=== PATIENT | male | born 1985 ===

== ENCOUNTER 2016-05-25 22:20 | Emergency (ER) | payer MEDICAID ==
[~2016-05-25] VITALS: Ht 177.8 cm; Wt 78.2 kg
[2016-05-25 22:25] VITALS: Ht 177.8 cm; Wt 78.2 kg
--- NOTE | 2016-05-25 23:40 | ERA ---
ER Documentation Chief Complaint Date/Time DATE: 05/25/16 TIME: 23:40 Chief Complaint shaking since 2 days HPI The patient is a 30-year-old male, presenting to the ER because of shakiness for the last 2 days because he ran out of his Xanax that he has been taking for more than 11 years yesterday. According to him, he takes Xanax 2 mg 3 times a day and somebody stole his medication. He is agitated why answering question. Has a remote history of seizure that he took Dilantin, however he stopped taking Dilantin for more than 3 months. He also used to take Depakote for unclear reason. When he was asked whether he is suicidal, he declined to answer the question and stated that I am feeling as if I am. going insane. He smokes, smokes marijuana, denies drinking Past medical history: Anxiety Past surgical history: Tonsillectomy ROS All systems reviewed and are negative except as per history of present illness. Allergies Allergies: Coded Allergies: No Known Allergy (Unverified , 05/25/16) Physical Exam Vitals Vital Signs Date Time Temp Pulse Resp B/P Pulse Ox O2 Delivery O2 Flow Rate FiO2 05/25/16 23:52 73 17 116/74 100 Room Air 05/25/16 22:25 98.3 104 20 153/112 98 Physical Exam Const: No acute distress. Head: Atraumatic. Eyes: Normal Conjunctiva. ENT: Normal External Ears, Nose and Mouth. Neck: Full range of motion. No meningismus. Resp: Clear to auscultation bilaterally. Cardio: Regular but tachycardic Abd: Soft, non distended, normal bowel sounds, non tender. Skin: No petechiae or rashes. Back: No midline or flank tenderness. Ext: No cyanosis, or edema. Neur: Awake and alert. No focal deficit Psych: Anxious, agitated Result Diagram: 05/25/16 0000 05/25/16 0000 Results 24 hrs Laboratory Tests Test 05/25/16 00:00 Acetaminophen Level < 10.0ug/ml Alanine Aminotransferase (ALT/SGPT) 184IU/L Albumin 4.3g/dl Albumin/Globulin Ratio 1.22 Alkaline Phosphatase 84IU/L Anion Gap 17 Aspartate Amino Transf (AST/SGOT) 105IU/L Basophils # 0.010^3/ul Basophils % 0.6% Blood Urea Nitrogen 14mg/dl Calcium Level 10.0mg/dl Carbon Dioxide Level 27mmol/L Chloride Level 100mmol/L Creatinine 0.95mg/dl Direct Bilirubin 0.00mg/dl Eosinophils # 0.110^3/ul Eosinophils % 1.3% Ethyl Alcohol Level < 10.0mg/dl Globulin 3.50g/dl Glucose Level 81mg/dl Hematocrit 45.2% Hemoglobin 14.9g/dl Indirect Bilirubin 0.6mg/dl Lymphocytes # 3.310^3/ul Lymphocytes % 48.5% Mean Corpuscular Hemoglobin 29.4pg Mean Corpuscular Hemoglobin Concent 33.0g/dl Mean Corpuscular Volume 89.2fl Mean Platelet Volume 10.7fl Monocytes # 0.810^3/ul Monocytes % 11.6% Neutrophils # 2.610^3/ul Neutrophils % 37.9% Nucleated Red Blood Cells # 0.010^3/ul Nucleated Red Blood Cells % 0.0/100WBC Platelet Count 83191^3/UL Potassium Level 4.0mmol/L Red Blood Count 5.0710^6/ul Red Cell Distribution Width 13.8% Salicylates Level < 1.0mg/dl Sodium Level 140mmol/L Total Bilirubin 0.6mg/dl Total Protein 7.8g/dl White Blood Count 6.910^3/ul Procedures/[place] [id number] Radiology Main Line: [phone] DIAGNOSTIC IMAGING REPORT Patient: CAROL RSOS : 1985 Age: 30 Sex: M [id number] [id number] DOS: 05/25/16 2351 Ordering MD: EFREM BAILEY MD Location: E/R Room/Bed: PROCEDURE: XR Chest. CLINICAL INDICATION: Altered level of consciousness. TECHNIQUE: Portable AP upright view of the chest was obtained. COMPARISON: None. FINDINGS: The cardiomediastinal silhouette is within normal limits. The lungs are clear. There is no evidence for pleural effusion, pneumothorax or pulmonary vascular congestion. The osseous structures are intact with no evidence for acute abnormality. RPTAT:HJJR IMPRESSION: No evidence for acute intrathoracic pathology. Blayne Hunt Physician Date Time Electronically viewed and signed by Blayne Hunt Physician on 05/26/2016 00:52 JR/ CC: EFREM BAILEY MD MEDICAL MAKING DECISION: The patient is a 30-year-old male, presenting with acute psychosis and possibly acute suicidal ideation and acute benzodiazepine withdrawal. The differential diagnoses considered include but are not limited to psychosis, drug-induced psychosis, benzodiazepine withdrawal, acute anxiety attack, acute panic attack, decompensated psychiatric illness Departure Diagnosis: Primary Impression: Psychosis Condition: Stable Comments He is awaiting for telepsychiatrist evaluation The patient's blood pressure was elevated (>120/80) but appears stable without evidence of hypertension emergency or urgency. The patient was counseled about the risks of hypertension and urged to pursue outpatient monitoring and therapy within a week with their primary care physician. EFREM BAILEY MD May 25, 2016 23:40
[2016-05-26 00:06] LABS: ADD SCAN DIFF NO
[2016-05-26 00:12] LABS: BASOPHILS % 0.6 % (0.0-2.0); EOSINOPHILS # 0.1 10^3/ul (0.0-0.5); EOSINOPHILS % 1.3 % (0.0-7.0); HEMATOCRIT 45.2 % (42.0-52.0); HEMOGLOBIN 14.9 g/dl (14.0-18.0); LYMPHOCYTES # 3.3 10^3/ul (0.8-2.9); LYMPHOCYTES % 48.5 % (15.0-51.0); MEAN CORPUSCULAR HEMOGLOBIN 29.4 pg (29.0-33.0); MEAN CORPUSCULAR VOLUME 89.2 fl (82.0-101.0); MEAN PLATELET VOLUME 10.7 fl (7.4-10.4); MONOCYTE # 0.8 10^3/ul (0.3-0.9); MONOCYTES % 11.6 % (0.0-11.0); NEUTROPHIL # 2.6 10^3/ul (1.6-7.5); NEUTROPHILS % 37.9 % (39.0-77.0); PLATELET COUNT 243 10^3/UL (140-415); RED BLOOD COUNT 5.07 10^6/ul (4.70-6.10); RED CELL DISTRIBUTION WIDTH 13.8 % (11.5-14.5); WHITE BLOOD COUNT 6.9 10^3/ul (4.8-10.8)
[2016-05-26 00:21] LABS: ALBUMIN 4.3 g/dl (3.3-4.9); CHLORIDE 100 mmol/L (97-110); SODIUM 140 mmol/L (135-144)
[2016-05-26 00:23] LABS: CREATININE 0.95 mg/dl (0.61-1.24)
[2016-05-26 00:24] LABS: ALANINE AMINOTRANSFERASE 184 IU/L (13-69); ALBUMIN/GLOBULIN RATIO 1.22; ALKALINE PHOSPHATASE 84 IU/L (42-121); ANION GAP 17 (8-16); ASPARTATE AMINO TRANSFERASE 105 IU/L (15-46); BILIRUBIN,INDIRECT 0.6 mg/dl (0-1.1); BILIRUBIN,TOTAL 0.6 mg/dl (0.2-1.3); BLOOD UREA NITROGEN 14 mg/dl (7-20); CARBON DIOXIDE 27 mmol/L (21-31); GLUCOSE 81 mg/dl (70-220); TOTAL PROTEIN 7.8 g/dl (6.1-8.1)
--- NOTE | 2016-05-26 00:52 | RADRPT ---
PROCEDURE: XR Chest. CLINICAL INDICATION: Altered level of consciousness. TECHNIQUE: Portable AP upright view of the chest was obtained. COMPARISON: None. FINDINGS: The cardiomediastinal silhouette is within normal limits. The lungs are clear. There is no evidenc e for pleural effusion, pneumothorax or pulmonary vascular congestion. The osseous structures are i ntact with no evidence for acute abnormality. RPTAT:HJJR IMPRESSION: No evidence for acute intrathoracic pathology. Physician Denis Date Time Electronically viewed and signed by Blayne Hunt Physician on 05/26/2016 00:52 JR/
[2016-05-26 01:03] LABS: ACETAMINOPHEN < 10.0 ug/ml (10.0-30.0); ETHANOL < 10.0 mg/dl; SALICYLATE < 1.0 mg/dl (5.0-30.0)
[2016-05-26] MEDS ORDERED: LORAZEPAM 2 MG INJ IM ONE (02:30)
[2016-05-26 08:16] VITALS: BP 104/65; PULSE 61; RESP 17; TEMP 98.1
== END 2016-05-26 09:18 ==
LOC: E/R 22:20
DX: F29 Unspecified psychosis not due to a substance or known physiological condition (principal); R40.2252 Coma scale, best verbal response, oriented, at arrival to emergency department; R40.2362 Coma scale, best motor response, obeys commands, at arrival to emergency department; R40.2142 Coma scale, eyes open, spontaneous, at arrival to emergency department
CPT/HCPCS: 71010; 80053; 80306; 85025; 96372; J2060; Z7502